=== PATIENT | male | born 1945 | race Caucasian/White ===

== ENCOUNTER 2017-07-19 11:52 | Emergency (ER) | payer OTHER, MEDICARE ==
[~2017-07-19] VITALS: Ht 170.2 cm; Wt 86.2 kg
[2017-07-19 12:56] VITALS: BP 174/90
[2017-07-19] MEDS ORDERED: SENOKOT-S1 TA1 PO (14:24)
[2017-07-19] MEDS ORDERED: HYDROCODONE-AP1 EAC6 PO (14:24)
== END 2017-07-19 18:18 | disposition home or self-care (01) ==
LOC: ER 11:52
DX: M25.511 Pain in right shoulder (principal); I10 Essential (primary) hypertension; F10.99 Alcohol use, unspecified with unspecified alcohol-induced disorder; Z96.653 Presence of artificial knee joint, bilateral; Z96.643 Presence of artificial hip joint, bilateral; Z88.0 Allergy status to penicillin; Z88.1 Allergy status to other antibiotic agents; Z98.890 Other specified postprocedural states